=== PATIENT | female | born 1940 | race Caucasian/White ===

== ENCOUNTER 2018-01-20 00:49 | Inpatient (IN) | payer MEDICARE, OTHER ==
[2018-01-20 01:32] LABS: #Eosinphils 0.1 thou/uL (0.0-0.7); #Lymphocytes 0.9 thou/uL (1.20-3.40); #Monocytes 0.7 thou/uL (0.11-0.59); #Neutrophils 3.5 thou/uL (1.40-6.50); %Basophils 0.6 % (0.0-1.0); %Eosinophils 1.7 % (0.0-10.0); %Lymphocytes 16.6 % (21.0-51.0); %Monocytes 12.8 % (0.0-10.0); %Neutrophils 68.3 % (42.0-75.0); Hemoglobin 12.9 g/dL (12.0-16.0); Mean Corpuscular HGB CONC 34.4 g/dL (32.0-36.0); Mean Corpuscular Hemoglobin 32.9 pg (27.0-31.0); Mean Corpuscular Volume 95.7 fL (78.0-98.0); Platelet Count 272 thou/uL (130-400); RBC Distribution Width 11.7 % (11.5-14.5); Red Blood Cell (RBC) Count 3.92 mill/uL (4.20-5.40); White Blood Cell (WBC) Count 5.1 thou/uL (4.8-10.8)
[2018-01-20 01:33] LABS: Bilirubin Negative (Negative); Blood, Urine Small (Negative); Clarity CLOUDY (Clear); Glucose, Urine (Dipstick) Negative (Negative); Leukocyte Large (Negative); Nitrite Positive (Negative); Protein, Urine (Dipstick) Negative (Neg-Trace); Specific Gravity, Urine 1.011 (1.002-1.036); pH, Urine 6.5 (5.0-9.0)
[2018-01-20 01:35] LABS: RBC/HPF 0-3 HPF (0-3); Squamous Epithelial 0-3 HPF (0-3)
[2018-01-20 01:36] LABS: Pathc Cast-AUWi Flag 2.76 (0-2.49)
[2018-01-20 01:49] LABS: Bacteria/HPF 4+ HPF (None Seen); Crystals/HPF None Seen HPF (Negative); Hyaline Casts/LPF NONE SEEN LPF (0-3 Hyaline); Other Casts/LPF None Seen LPF (0-3 Hyaline); Renal Epithelial None Seen HPF (0-3); Transitional Epithelial NONE SEEN HPF (0-3)
[2018-01-20 01:52] LABS: ALT (SGPT) 11 U/L (8-55); AST (SGOT) 15 U/L (5-34); Albumin 3.7 g/dL (3.4-4.8); Alkaline Phosphatase 79 U/L (40-150); Anion Gap 13 mmol/L (10-20); BUN (Urea Nitrogen) 27 mg/dL (9.8-20.1); Bilirubin, Total 0.4 mg/dL (0.2-1.2); CK (CPK) 57 U/L (29-168); Calc. Creatinine Clearance 0 mL/min (70-130); Calcium 9.4 mg/dL (7.8-10.44); Carbon Dioxide 24 mmol/L (23-31); Chloride 106 mmol/L (98-107); Estimated GFR-MDRD 82; Globulin 2.8 g/dL (2.4-3.5); Glucose 103 mg/dL (83-110); Potassium 3.9 mmol/L (3.5-5.1); Protein, Total 6.5 g/dL (6.0-8.3); Sodium 139 mmol/L (136-145)
[2018-01-20] MEDS ORDERED: cefTRIAXone\\ROCEPHIN 1 GM VIAL ONE (02:48)
[2018-01-20] MEDS ORDERED: Ondansetron ODT 4 MG TAB SL PRN (04:58)
[2018-01-20] MEDS ORDERED: Sodium Chloride 0.9% 1,000 ML IV SCH (04:58)
[2018-01-20] MEDS ORDERED: Ondansetron PF 4 MG/2 ML Vial IVP PRN ×2 (04:58→07:10)
[2018-01-20] MEDS ORDERED: Acetaminophen 325 MG TAB PO PRN ×2 (04:58→07:10)
[2018-01-20] MEDS ORDERED: cefTRIAXone\\ROCEPHIN 1 GM in Sodium Chloride 0.9% 100 ML IVPB SCH (05:00)
[2018-01-20 05:24] VITALS: BMI 18.8
[2018-01-20] MEDS ORDERED: Eucerin (Mineral Oil/Petrolatum,White) 30 gm Jar TOP PRN (07:10)
[2018-01-20] MEDS ORDERED: Artificial Tears 18 DROP/0.9 ML EA EYE PRN (07:10)
[2018-01-20] MEDS ORDERED: Bisacodyl 5 MG TAB PO PRN (07:10)
[2018-01-20] MEDS ORDERED: Calcium Carbonate 500 MG ChewTAB PO PRN (07:10)
[2018-01-20] MEDS ORDERED: Diabetic Tussin 200 MG/10 ML UDCUP PO PRN (07:10)
[2018-01-20] MEDS ORDERED: Loratadine 10 MG TAB PO PRN (07:10)
[2018-01-20] MEDS ORDERED: Sodium Chloride 0.65% Nasal 44 ML BOT EA NARE PRN (07:10)
[2018-01-20] MEDS ORDERED: Ondansetron ODT 4 MG TAB PO PRN (07:10)
[2018-01-20] MEDS ORDERED: Zolpidem Tartrate 5 MG TAB PO PRN (07:10)
[2018-01-20] MEDS ORDERED: hydrALAZINE 20 MG/ML VIAL SLOW IVP PRN (07:10)
[2018-01-20] MEDS ORDERED: Bisacodyl 10 MG SUPP PR PRN (07:10)
[2018-01-20] MEDS ORDERED: Cepastat Lozenges 1 LOZ PO PRN (07:10)
[2018-01-20] MEDS ORDERED: Senokot S 8.6-50 MG TAB PO PRN (07:10)
[2018-01-20] MEDS ORDERED: Loperamide HCl 2 MG CAP PO PRN (07:10)
[2018-01-20] MEDS ORDERED: Polyethylene Glycol 3350 17 GM Packet PO PRN (07:13)
[2018-01-20] MEDS: Nortriptyline 10 MG CAP PO SCH (10:09)
[2018-01-20] MEDS: Megestrol Acetate 800 MG/20 ML UDCUP PO SCH ×2 (10:09→19:53)
[2018-01-20] MEDS: Tamsulosin HCl 0.4 MG CAP PO SCH (10:10)
[2018-01-20] MEDS: Lorazepam 0.5 MG TAB PO PRN ×2 (10:10→15:13)
[2018-01-20] MEDS: Cyanocobalamin (Vitamin B-12) 1,000 MCG TAB PO SCH (10:10)
[2018-01-20] MEDS: Enoxaparin Sodium 40 MG/0.4 ML SYRINGE SC SCH (10:11)
[2018-01-20] MEDS: Famotidine 20 MG TAB PO SCH ×2 (10:11→19:52)
[2018-01-20] MEDS: Dextrose 5 % And 0.9 % NaCl 1,000 ML IV SCH ×2 (10:12→22:49)
--- NOTE | 2018-01-20 10:13 | HP ---
DATE OF SERVICE: 01/20/2018 PRIMARY CARE PHYSICIAN: Dr. Ashley Morfin at [facility]/Dr. Roldan Corado. REASON FOR ADMISSION: Urinary tract infection, generalized weakness, altered mental status. HISTORY OF PRESENT ILLNESS: A 77-year-old female who lives at assisted living facility from where brenda blunt was sent to emergency room for evaluation of her generalized body pain. The patient is a very poor historian and seems like she has a cognitive deficit. She is hurting all over her body. She is not able to focus on out any specific complaints, but she appears ill. She appears dehydrated. As per emergency room report, the patient reported some pelvic discomfort. She did not have any fever i n the emergency room, she was relatively hypotensive in the emergency room. The patient was already admitted as a full admission status on medical floor. This morning when I evaluated this patient, th e patient appeared sick. She was having diffuse pain. She was not able to provide any history and t here was no family member present at bedside, so history is very limited. In the emergency room, gina rahman blood tests showed normal CBC, normal BMP and LFT. Her urinalysis was consistent with UTI. She was given IV fluid and Rocephin in the Emergency Room and subsequently she was admitted to medical [facility]. REVIEW OF SYSTEMS: All review of systems tried to review with the patient, but unable to review at t his point because of altered mental status and review of systems dictated below is not reliable becau se of her cognitive status. Constitutional: Weight loss or gain, ability to conduct usual activities. Skin: Rash, itching. Eyes: Double vision, pain. ENT/Mouth: Nose bleeding, neck stiffness, pain, tenderness. Cardiovascular: Palpitations, dyspnea on exertion, orthopnea. Respiratory: Shortness of breath, wheezing, cough, hemoptysis, fever or night sweats. Gastrointestinal: Poor appetite, abdominal pain, heartburn, nausea, vomiting, constipation, or diarr hea. Genitourinary: Urgency, frequency, dysuria, nocturia. Musculoskeletal: Pain, swelling. Neurologic/Psychiatric: Anxiety, depression. Allergy/Immunologic: Skin rash, bleeding tendency. PAST MEDICAL HISTORY: Alzheimer's type of dementia. PAST PSYCHIATRIC HISTORY: Anxiety and depression, history of inpatient psychiatric facility [facility] in 1993. PAST SURGICAL HISTORY: Hysterectomy in 2011. ALLERGIES: CODEINE. CURRENT HOME MEDICATIONS: Vitamin B12, 1000 mcg p.o. daily; Colace 100 mg daily, Motrin 600 mg t.i.d . p.r.n., Ativan 0.5 mg t.i.d. p.r.n., Megace 400 mg p.o. b.i.d., Remeron 15 mg p.o. at bedtime, nort riptyline 10 mg daily, MiraLax 17 grams p.o. daily, Seroquel 150 mg p.o. daily, and Flomax 0.4 mg p.o . daily. SOCIAL HISTORY: The patient lives at [facility]. No history of tob acco, alcohol or illicit drug abuse. FAMILY HISTORY: Father had terminal cancer as per record, no family history of coronary artery disea se, stroke, or cancer. EMERGENCY ROOM COURSE: The patient is given Rocephin and IV fluid. PHYSICAL EXAMINATION: VITAL SIGNS: On arrival, blood pressure 104/59, pulse 87, respiratory rate 20, temperature 97.9, sat uration 95% on 2 liters oxygen. Weight 49 kilograms. GENERAL: The patient appears chronically ill, dehydrated. HEAD: Normocephalic, atraumatic. EYES: Pupils round, reactive to light. Extraocular muscle intact. Shrunken eyeball. ENT: Dry appearing mucous membrane, no oral lesion, no pharyngeal erythema, no exudate. NECK: Supple, no JVD, no thyromegaly, no carotid bruit. LUNGS: Clear to auscultation without any rhonchi or rales. CARDIAC: S1 and S2 appears regular. No murmur elicited, no gallop, no rub. ABDOMEN: The patient does have mild diffuse soreness, but no peritoneal sign, no guarding, no rigidi ty, no rebound. Mild suprapubic discomfort noted. BACK: Mild CVA discomfort noted on percussion. No point tenderness on the back. EXTREMITIES: Upper extremity, passive movement of all joints are normal. Lower extremity, no edema. Good distal pulsation. SKIN: No skin rash. HEMATOLOGICAL: No lymphadenopathy. PSYCHIATRIC: Flat affect. SIGNIFICANT LABORATORY DATA: CBC: WBC 5.1, hemoglobin 12.9, and platelet 272. BMP: Sodium 139, po tassium 3.9, chloride 106, carbon dioxide 24, anion gap 13, BUN 27, creatinine 0.69, glucose 103, enriqueta cium 9.4. Lactic acid 0.7. LFT: AST 15, ALT 11, alkaline phosphatase 79, albumin 3.7, CK 57. Urin alysis suggestive of UTI. ASSESSMENT AND PLAN: 1. Acute encephalopathy, etiology uncertain, suspecting from urinary tract infection. She does not have clinically any focal neurological deficit. 2. Urinary tract infection, seems like a recurrent. Urine culture already sent from the emergency r oom. The patient is already started on Rocephin 1 gram q.24 h. Based on culture result, we will magnolia nge antibiotic therapy accordingly. 3. Dehydration. The patient clinically appears volume depleted. She will need IV fluid with dextro se NS at 75 mL per hour. 4. Moderate protein calorie malnutrition. The patient will need nutritional supplement with Ensure t.i.d. and regular diet will be given. We will also continue Megace 400 mg p.o. b.i.d. and add [place] on 15 mg p.o. at bedtime to stimulate appetite. 5. Anxiety, depression, bipolar disorder. Continue Seroquel 150 mg p.o. daily, Remeron 15 mg p.o. a t bedtime, Ativan on p.r.n. basis. 6. Deep venous thrombosis prophylaxis. Lovenox 40 mg subcu daily. 7. Gastrointestinal prophylaxis, Pepcid 20 mg p.o. b.i.d. 8. Code status. The patient does not have any surrogate decision maker at this point, unable to dis cuss with the patient because of her cognitive status. We will keep as a FULL CODE. DISPOSITION: Plan based on clinical course. We are expecting patient's stay in hospital more than 2 midnights. The patient will need PT, OT while in hospital and possibly placement to senior care home as well, depending upon clinical course.
[2018-01-20] MEDS: Docusate 100 MG CAP PO SCH (12:38)
[2018-01-20] MEDS ORDERED: Ziprasidone 20 MG CAP PO SCH (14:00)
[2018-01-20] MEDS: Mirtazapine 15 MG TAB PO SCH (19:52)
[2018-01-21] MEDS: cefTRIAXone\\ROCEPHIN 1 GM in Sodium Chloride 0.9% 100 ML IVPB SCH (02:05)
[2018-01-21 05:12] LABS: #Eosinphils 0.1 thou/uL (0.0-0.7); #Lymphocytes 0.7 thou/uL (1.20-3.40); #Monocytes 0.6 thou/uL (0.11-0.59); #Neutrophils 3.8 thou/uL (1.40-6.50); %Basophils 0.4 % (0.0-1.0); %Eosinophils 2.5 % (0.0-10.0); %Lymphocytes 13.8 % (21.0-51.0); %Monocytes 10.5 % (0.0-10.0); %Neutrophils 72.9 % (42.0-75.0); Hemoglobin 12.3 g/dL (12.0-16.0); Mean Corpuscular HGB CONC 33.3 g/dL (32.0-36.0); Mean Corpuscular Hemoglobin 32.1 pg (27.0-31.0); Mean Corpuscular Volume 96.5 fL (78.0-98.0); Mean Platelet Volume 7.4 fL (7.4-10.4); Platelet Count 289 thou/uL (130-400); RBC Distribution Width 11.9 % (11.5-14.5); Red Blood Cell (RBC) Count 3.81 mill/uL (4.20-5.40); White Blood Cell (WBC) Count 5.3 thou/uL (4.8-10.8)
[2018-01-21 05:32] LABS: Anion Gap 10 mmol/L (10-20); BUN (Urea Nitrogen) 11 mg/dL (9.8-20.1); Calc. Creatinine Clearance 64 mL/min (70-130); Carbon Dioxide 23 mmol/L (23-31); Chloride 112 mmol/L (98-107); Estimated GFR-MDRD Greater than 90; Glucose 100 mg/dL (83-110); Potassium 4.2 mmol/L (3.5-5.1); Sodium 141 mmol/L (136-145)
[2018-01-21] MEDS: Nortriptyline 10 MG CAP PO SCH (08:25)
[2018-01-21] MEDS: Enoxaparin Sodium 40 MG/0.4 ML SYRINGE SC SCH (08:25)
[2018-01-21] MEDS: Megestrol Acetate 800 MG/20 ML UDCUP PO SCH ×2 (08:25→19:48)
[2018-01-21] MEDS: Ziprasidone 20 MG CAP PO SCH (08:26)
[2018-01-21] MEDS: Cyanocobalamin (Vitamin B-12) 1,000 MCG TAB PO SCH (08:26)
[2018-01-21] MEDS: Docusate 100 MG CAP PO SCH (08:26)
[2018-01-21] MEDS: Tamsulosin HCl 0.4 MG CAP PO SCH (08:26)
[2018-01-21] MEDS: Famotidine 20 MG TAB PO SCH ×2 (08:26→19:48)
--- NOTE | 2018-01-21 10:30 | PDOC.PN ---
- Subjective Encounter Start Date: 01/21/18 Encounter Start Time: 08:35 -: old records requested/rev Patient seen and examined. No new complaints. No overnight events she is confused and anxious, she did well with nurse's aides teacher bedside - Objective Resuscitation Status: Resuscitation Status FULL:Full Resuscitation MAR Reviewed: Yes Vital Signs & Weight: Vital Signs (12 hours) Temp Pulse Resp BP Pulse Ox 01/21/18 07:57 99.9 F H 87 18 108/55 L 91 L Weight Admit Weight 116 lb Weight 116 lb 14.4 oz Result Diagrams: 01/21/18 03:05 01/21/18 03:05 Phys Exam - Physical Examination Constitutional: NAD HEENT: PERRLA, moist MMs, sclera anicteric, TM's clear Neck: no JVD, supple Respiratory: no wheezing, no rales, no rhonchi Cardiovascular: RRR, no significant murmur, no rub Gastrointestinal: soft, non-tender, no distention, positive bowel sounds Musculoskeletal: no edema, pulses present Neurological: non-focal, normal sensation Lymphatic: no nodes Psychiatric: normal affect Skin: no rash, normal turgor Dx/Plan (1) Dehydration Code(s): E86.0 - DEHYDRATION Status: Acute (2) Encephalopathy acute Code(s): G93.40 - ENCEPHALOPATHY, UNSPECIFIED Status: Acute (3) UTI (urinary tract infection) Status: Acute (4) Anxiety and depression Code(s): F41.9 - ANXIETY DISORDER, UNSPECIFIED; F32.9 - MAJOR DEPRESSIVE DISORDER, SINGLE EPISODE, UNSPECIFIED Status: Chronic (5) Protein-calorie malnutrition, moderate Code(s): E44.0 - MODERATE PROTEIN-CALORIE MALNUTRITION Status: Chronic - Plan cont current plan of care, continue antibiotics, PT/OT, social services director * continue rocephin * continue IVF * may need to upgrade from assisted living to NH * medication reviewed as below * symptomatic treatment * follow culture today. Review of Systems - Review of Systems ENT: negative: Ear Pain, Ear Discharge, Nose Pain, Nose Discharge, Nose Congestion, Mouth Pain, Mouth Swelling, Throat Pain, Throat Swelling, Other Respiratory: negative: Cough, Dry, Shortness of Breath, Hemoptysis, SOB with Excertion, Pleuritic Pain, Sputum, Wheezing Cardiovascular: negative: chest pain, palpitations, orthopnea, paroxysmal nocturnal dyspnea, edema, light headedness, other Gastrointestinal: negative: Nausea, Vomiting, Abdominal Pain, Diarrhea, Constipation, Melena, Hematochezia, Other Genitourinary: negative: Dysuria, Frequency, Incontinence, Hematuria, Retention , Other Musculoskeletal: negative: Neck Pain, Shoulder Pain, Arm Pain, Back Pain, Hand Pain, Leg Pain, Foot Pain, Other Other: not reliable due to her level of cognitive status - Medications/Allergies Allergies/Adverse Reactions: Allergies Allergy/AdvReac Type Severity Reaction Status Date / Time codeine Allergy Verified 01/04/14 17:43 Medications: Current Medications Acetaminophen (Tylenol) 650 mg PO Q4H PRN PRN Reason: Headache/Fever/Mild Pain (1-3) Last Admin: 01/20/18 14:10 Dose: 650 mg Artificial Tears (Tears Naturale) 2 drop EA EYE PRN PRN PRN Reason: Dry Eyes Bisacodyl (Dulcolax) 10 mg PO DAILYPRN PRN PRN Reason: Constipation Bisacodyl (Dulcolax) 10 mg [place] DAILYPRN PRN PRN Reason: Constipation Calcium Carbonate (Tums) 1,000 mg PO Q4H PRN PRN Reason: Heartburn or Indigestion Cyanocobalamin (Vitamin B-12) 1,000 mcg PO DAILY [facility] Last Admin: 01/21/18 08:26 Dose: 1,000 mcg Docusate Sodium (Colace) 100 mg PO DAILY [facility] Last Admin: 01/21/18 08:26 Dose: Not Given Enoxaparin Sodium (Lovenox) 40 mg SC 0900 [facility] Last Admin: 01/21/18 08:25 Dose: 40 mg Famotidine (Pepcid) 20 mg PO BID [facility] Last Admin: 01/21/18 08:26 Dose: 20 mg Guaifenesin (Robitussin Sf) 200 mg PO Q4H PRN PRN Reason: Cough Hydralazine HCl (Apresoline) 10 mg SLOW IVP Q4H PRN PRN Reason: SBP > 180 and HR < 70 Dextrose/Sodium Chloride (D5 0.9% Ns) 1,000 mls @ 75 mls/hr IV .[id number] [facility] Last Admin: 01/20/18 22:49 Dose: 1,000 mls Ceftriaxone Sodium 1 gm/ (Sodium Chloride) 100 mls @ 200 mls/hr IVPB 0300 [facility] Last Admin: 01/21/18 02:05 Dose: 100 mls Loperamide HCl (Imodium) 2 mg PO PRN PRN PRN Reason: Diarrhea/Loose Stools Loratadine (Claritin) 10 mg PO DAILYPRN PRN PRN Reason: Sinus Symptoms Lorazepam (Ativan) 0.5 mg PO TIDPRN PRN PRN Reason: Anxiety Last Admin: 01/20/18 15:13 Dose: 0.5 mg Megestrol Acetate (Megace) 400 mg PO BID [facility] Last Admin: 01/21/18 08:25 Dose: 400 mg Mineral Oil/White Petrolatum (Eucerin Cream) 0 gm TOP BIDPRN PRN PRN Reason: Dry Skin Mirtazapine (Remeron) 15 mg PO HS [facility] Last Admin: 01/20/18 19:52 Dose: 15 mg Nortriptyline HCl (Pamelor) 10 mg PO DAILY [facility] Last Admin: 01/21/18 08:25 Dose: 10 mg Ondansetron HCl (Zofran Odt) 4 mg PO Q6H PRN PRN Reason: Nausea/Vomiting Ondansetron HCl (Zofran) 4 mg IVP Q6H PRN PRN Reason: Nausea/Vomiting Polyethylene Glycol (Miralax) 17 gm PO DAILYPRN PRN PRN Reason: Constipation Quetiapine Fumarate (Seroquel) 150 mg PO DAILY [facility] Last Admin: 01/21/18 08:25 Dose: 150 mg Senna/Docusate Sodium (Senokot S) 2 tab PO BID PRN PRN Reason: Constipation Sodium Chloride ([place] Nasal [place] 0.65%) 0 ml EA NARE QIDPRN PRN PRN Reason: Nasal Congestion Tamsulosin HCl (Flomax) 0.4 mg PO DAILY [facility] Last Admin: 01/21/18 08:26 Dose: 0.4 mg Throat Lozenges (Cepastat Lozenges) 1 aleksandar PO Q2H PRN PRN Reason: Sore Throat Ziprasidone (Geodon) 20 mg PO QAM [facility] Last Admin: 01/21/18 08:26 Dose: 20 mg Zolpidem Tartrate (Ambien) 5 mg PO HSPRN PRN PRN Reason: Insomnia
[2018-01-21] MEDS: Lorazepam 0.5 MG TAB PO PRN (11:30)
[2018-01-21] MEDS: Dextrose 5 % And 0.9 % NaCl 1,000 ML IV SCH (13:35)
[2018-01-21] MEDS: Cipro 250 MG TAB PO SCH (19:48)
[2018-01-21] MEDS: Mirtazapine 15 MG TAB PO SCH (19:48)
[2018-01-22] MEDS: cefTRIAXone\\ROCEPHIN 1 GM in Sodium Chloride 0.9% 100 ML IVPB SCH (03:53)
[2018-01-22] MEDS: Dextrose 5 % And 0.9 % NaCl 1,000 ML IV SCH ×2 (03:54→15:28)
[2018-01-22] MEDS: Cipro 250 MG TAB PO SCH ×2 (06:13→19:49)
[2018-01-22] MEDS: Megestrol Acetate 800 MG/20 ML UDCUP PO SCH ×2 (09:14→19:47)
[2018-01-22] MEDS: Enoxaparin Sodium 40 MG/0.4 ML SYRINGE SC SCH (09:15)
[2018-01-22] MEDS: Famotidine 20 MG TAB PO SCH ×2 (09:16→19:47)
[2018-01-22] MEDS: Tamsulosin HCl 0.4 MG CAP PO SCH (09:17)
[2018-01-22] MEDS: Docusate 100 MG CAP PO SCH (09:17)
[2018-01-22] MEDS: Cyanocobalamin (Vitamin B-12) 1,000 MCG TAB PO SCH (09:17)
[2018-01-22] MEDS: Nortriptyline 10 MG CAP PO SCH (09:17)
[2018-01-22] MEDS: Ziprasidone 20 MG CAP PO SCH (09:17)
--- NOTE | 2018-01-22 13:06 | PDOC.PN ---
- Subjective Encounter Start Date: 01/22/18 Encounter Start Time: 08:30 Patient seen and examined. No new complaints. No overnight events - Objective Resuscitation Status: Resuscitation Status FULL:Full Resuscitation MAR Reviewed: Yes Vital Signs & Weight: Vital Signs (12 hours) Temp Pulse Resp BP Pulse Ox 01/22/18 08:00 97 01/22/18 07:03 99.3 F 82 19 144/92 H 97 Weight Admit Weight 116 lb Weight 116 lb 14.4 oz I&O: 01/21/18 01/22/18 01/23/18 06:59 06:59 06:59 Intake Total 120 Balance 120 Result Diagrams: 01/21/18 03:05 01/21/18 03:05 Phys Exam - Physical Examination Constitutional: NAD HEENT: PERRLA, moist MMs, sclera anicteric Neck: no JVD, supple Respiratory: no wheezing, no rales, no rhonchi Cardiovascular: RRR, no significant murmur, no rub Gastrointestinal: soft, non-tender, no distention Musculoskeletal: no edema, pulses present Neurological: non-focal, normal sensation Lymphatic: no nodes Psychiatric: normal affect Skin: no rash, normal turgor Dx/Plan (1) Dehydration Code(s): E86.0 - DEHYDRATION Status: Acute (2) Encephalopathy acute Code(s): G93.40 - ENCEPHALOPATHY, UNSPECIFIED Status: Acute (3) UTI (urinary tract infection) Status: Acute (4) Anxiety and depression Code(s): F41.9 - ANXIETY DISORDER, UNSPECIFIED; F32.9 - MAJOR DEPRESSIVE DISORDER, SINGLE EPISODE, UNSPECIFIED Status: Chronic (5) Protein-calorie malnutrition, moderate Code(s): E44.0 - MODERATE PROTEIN-CALORIE MALNUTRITION Status: Chronic - Plan cont current plan of care, continue antibiotics * medication reviewed as below * symptomatic treatment * continue oral cipro * case managers for discharge needs. Review of Systems - Review of Systems Other: not reliable due to dementia - Medications/Allergies Allergies/Adverse Reactions: Allergies Allergy/AdvReac Type Severity Reaction Status Date / Time codeine Allergy Verified 01/04/14 17:43 Medications: Current Medications Acetaminophen (Tylenol) 650 mg PO Q4H PRN PRN Reason: Headache/Fever/Mild Pain (1-3) Last Admin: 01/20/18 14:10 Dose: 650 mg Artificial Tears (Tears Naturale) 2 drop EA EYE PRN PRN PRN Reason: Dry Eyes Bisacodyl (Dulcolax) 10 mg PO DAILYPRN PRN PRN Reason: Constipation Bisacodyl (Dulcolax) 10 mg [place] DAILYPRN PRN PRN Reason: Constipation Calcium Carbonate (Tums) 1,000 mg PO Q4H PRN PRN Reason: Heartburn or Indigestion Ciprofloxacin (Cipro) 250 mg PO 06,1999 [facility] Last Admin: 01/22/18 06:13 Dose: 250 mg Cyanocobalamin (Vitamin B-12) 1,000 mcg PO DAILY [facility] Last Admin: 01/22/18 09:17 Dose: 1,000 mcg Docusate Sodium (Colace) 100 mg PO DAILY [facility] Last Admin: 01/22/18 09:17 Dose: 100 mg Enoxaparin Sodium (Lovenox) 40 mg SC 09 [facility] Last Admin: 01/22/18 09:15 Dose: 40 mg Famotidine (Pepcid) 20 mg PO BID [facility] Last Admin: 01/22/18 09:16 Dose: 20 mg Guaifenesin (Robitussin Sf) 200 mg PO Q4H PRN PRN Reason: Cough Hydralazine HCl (Apresoline) 10 mg SLOW IVP Q4H PRN PRN Reason: SBP > 180 and HR < 70 Dextrose/Sodium Chloride (D5 0.9% Ns) 1,000 mls @ 75 mls/hr IV .[id number] [facility] Last Admin: 01/22/18 03:54 Dose: Not Given Ceftriaxone Sodium 1 gm/ (Sodium Chloride) 100 mls @ 200 mls/hr IVPB 0300 [facility] Last Admin: 01/22/18 03:53 Dose: Not Given Loperamide HCl (Imodium) 2 mg PO PRN PRN PRN Reason: Diarrhea/Loose Stools Loratadine (Claritin) 10 mg PO DAILYPRN PRN PRN Reason: Sinus Symptoms Lorazepam (Ativan) 0.5 mg PO TIDPRN PRN PRN Reason: Anxiety Last Admin: 01/21/18 11:30 Dose: 0.5 mg Megestrol Acetate (Megace) 400 mg PO BID [facility] Last Admin: 01/22/18 09:14 Dose: 400 mg Mineral Oil/White Petrolatum (Eucerin Cream) 0 gm TOP BIDPRN PRN PRN Reason: Dry Skin Mirtazapine (Remeron) 15 mg PO HS [facility] Last Admin: 01/21/18 19:48 Dose: 15 mg Nortriptyline HCl (Pamelor) 10 mg PO DAILY [facility] Last Admin: 01/22/18 09:17 Dose: 10 mg Ondansetron HCl (Zofran Odt) 4 mg PO Q6H PRN PRN Reason: Nausea/Vomiting Ondansetron HCl (Zofran) 4 mg IVP Q6H PRN PRN Reason: Nausea/Vomiting Polyethylene Glycol (Miralax) 17 gm PO DAILYPRN PRN PRN Reason: Constipation Quetiapine Fumarate (Seroquel) 150 mg PO DAILY [facility] Last Admin: 01/22/18 09:15 Dose: 150 mg Senna/Docusate Sodium (Senokot S) 2 tab PO BID PRN PRN Reason: Constipation Sodium Chloride ([place] Nasal [place] 0.65%) 0 ml EA NARE QIDPRN PRN PRN Reason: Nasal Congestion Tamsulosin HCl (Flomax) 0.4 mg PO DAILY [facility] Last Admin: 01/22/18 09:17 Dose: 0.4 mg Throat Lozenges (Cepastat Lozenges) 1 aleksandar PO Q2H PRN PRN Reason: Sore Throat Ziprasidone (Geodon) 20 mg PO QAM [facility] Last Admin: 01/22/18 09:17 Dose: 20 mg Zolpidem Tartrate (Ambien) 5 mg PO HSPRN PRN PRN Reason: Insomnia
[2018-01-22] MEDS: Mirtazapine 15 MG TAB PO SCH (19:47)
[2018-01-22] MEDS: Lorazepam 0.5 MG TAB PO PRN (19:48)
[2018-01-23] MEDS ORDERED: Lorazepam 1 MG TAB PO SCH (01:00)
[2018-01-23] MEDS ORDERED: diphenhydrAMINE 50 MG/ML VIAL IM SCH (01:00)
[2018-01-23] MEDS: Cipro 250 MG TAB PO SCH (04:10)
[2018-01-23 08:10] VITALS: BP 122/47; TEMP 97.9
[2018-01-23] MEDS: Ziprasidone 20 MG CAP PO SCH (14:47)
[2018-01-23] MEDS: Nortriptyline 10 MG CAP PO SCH (14:47)
[2018-01-23] MEDS: Cyanocobalamin (Vitamin B-12) 1,000 MCG TAB PO SCH (14:47)
[2018-01-23] MEDS: Megestrol Acetate 800 MG/20 ML UDCUP PO SCH (14:48)
[2018-01-23] MEDS: Tamsulosin HCl 0.4 MG CAP PO SCH (14:48)
[2018-01-23] MEDS: Famotidine 20 MG TAB PO SCH (14:48)
[2018-01-23] MEDS: Enoxaparin Sodium 40 MG/0.4 ML SYRINGE SC SCH (14:48)
--- NOTE | 2018-01-23 14:48 | PQF ---
DATE: 01-23-18 ATTN: DR. ALMITA STRAUSS Please exercise your independent, professional judgment in responding to the clarification form. Clinical indicators are provided on the bottom of this form for your review Please check appropriate box(s): [ x] Encephalopathy: Type: [ x] Acute [ ] Subacute [ ] Chronic Etiology: [ ] Metabolic [ ] Toxic [ ] Other (please specify) [ ] Transient Alteration of Awareness [ ] Other diagnosis [ ] Unable to determine In addition, please specify: Present on Admission (POA): [ x ] Yes [ ] No [ ] Unable to determine For continuity of documentation, please document condition throughout progress notes and discharge summary. Thank You. CLINICAL INDICATORS - SIGNS / SYMPTOMS / LABS ER DX: AMS, UTI H&P: SEEMS LIKE SHE HAS COGNITIVE DEFICIT, AMS H&P: ACUTE ENCEPHALOPATHY, ETIOLOGY UNCERTAIN, SUSPECTING FROM URINARY TRACT INFECTION, MODERATE PROTEIN CALORIE MALNUTRITION RISK FACTORS: ER DX: AMS, UTI H&P: ACUTE ENCEPHALOPATHY, ETIOLOGY UNCERTAIN, SUSPECTING FROM URINARY TRACT INFECTION, MODERATE PROTEIN CALORIE MALNUTRITION TREATMENTS: ER: IVF NS, CEFTRIAXONE (This form is maintained as a part of the permanent medical record) 2014 [employer] All Rights Reserved [email or web address] Office: [phone] [facility]
[2018-01-23] MEDS: Docusate 100 MG CAP PO SCH (14:49)
== END 2018-01-23 17:31 | DRG 71 ==
LOC: ERS 00:49 → T4-A 03:46
PROVIDERS: ADMIT Hospitalist; ATTEND Hospitalist
DX: G93.49 Other encephalopathy (principal); N39.0 Urinary tract infection, site not specified; E44.0 Moderate protein-calorie malnutrition; Z68.1 Body mass index [BMI] 19.9 or less, adult; E86.0 Dehydration; F41.8 Other specified anxiety disorders; F31.9 Bipolar disorder, unspecified; G30.9 Alzheimer's disease, unspecified; F02.80 Dementia in other diseases classified elsewhere, unspecified severity, without behavioral disturbance, psychotic disturbance, mood disturbance, and anxiety; Z88.6 Allergy status to analgesic agent
CPT/HCPCS: 36415; 51701; 80048; 80053; 81003; 81015; 82550; 83605; 85025; 87077; 87086; 87186; 94760; 96361; 96365; A4353; G8978-GP-CK; G8979-GP-CJ; G8987-GO-CM; G8988-GO-CM; G8989-GO-CM; G8996-GN-CJ; G8997-GN-CJ; J0696; J1200; J1650; J7050